=== PATIENT | female | born 1965 | race Caucasian/White ===

== ENCOUNTER 2022-08-20 15:46 | Inpatient (IN) | payer OTHER ==
[~2022-08-20] VITALS: Ht 154.9 cm; Wt 62.1 kg
[2022-08-20] MEDS ORDERED: FAMOTIDINE 20MG/2ML VIAL IV STA (16:23)
[2022-08-20] MEDS ORDERED: MORPHINE SULFATE 4 MG/ML CPJ (NOT FOR IM USE) IV STA (16:23)
[2022-08-20] MEDS ORDERED: ONDANSETRON HCL 4MG/2ML INJ IV STA (16:23)
[2022-08-20] MEDS ORDERED: SODIUM CHLORIDE 0.9% 1,000 ML IV ONE (16:30)
[2022-08-20 16:38] LABS: BASOPHILS % 0.4 % (0.0-2.0); HEMATOCRIT. 32.8 % (36.0-48.0); HEMOGLOBIN. 11.3 g/dL (12.0-16.0); LYMPHOCYTES % 18.3 % (20.0-50.0); MEAN CORPUSCULAR HEMOGLOBIN 30.7 pg (28.0-32.0); MEAN CORPUSCULAR VOLUME 89.2 fL (81.0-99.0); MEAN PLATELET VOLUME 8.3 fl (7.4-10.4); MONOCYTES % 5.2 % (2.0-8.0); NEUTROPHILS % 76.1 % (40.0-76.0); PLATELET 302 x1000/uL (130-400); RED BLOOD CELL COUNT 3.67 mill/uL (4.2-5.4)
[2022-08-20 16:43] LABS: CHLORIDE 100 mEq/L (98-107)
[2022-08-20 17:14] LABS: INR 1.1
[2022-08-20] MEDS ORDERED: METRONIDAZOLE 500 MG PREMIX 100 ML IV STA (18:45)
[2022-08-20] MEDS: LEVOFLOXACIN 750MG PREMIX 150 ML IV STA ×2 (20:08→21:30)
[2022-08-20] MEDS ORDERED: MORPHINE SULFATE 2 MG/ML CPJ (NOT FOR IM USE) IV PRN (22:00)
[2022-08-20] MEDS ORDERED: NALOXONE HCL 0.4MG/ML VIAL IV PRN (22:00)
[2022-08-20] MEDS: ONDANSETRON HCL 4MG/2ML INJ IV PRN (22:29)
[2022-08-21 02:31] VITALS: BP 152/98
[2022-08-21] MEDS: ONDANSETRON HCL 4MG/2ML INJ IV PRN (05:52)
[2022-08-21] MEDS ORDERED: DEXT 5%/0.2% NACL KCL 20MEQ/L 1,000 ML IV SCH (09:00)
[2022-08-21] MEDS ORDERED: DEXTROSE 50% WATER 50ML SYRINGE IV PRN (11:00)
[2022-08-21] MEDS: BLOOD SUGAR DIAGNOSTIC STRIP TEST SCH ×3 (12:34→20:39)
[2022-08-21] MEDS: INSULIN LISPRO 100 UNITS/ML SUBCUT SCH ×3 (12:52→21:02)
[2022-08-21] MEDS: METRONIDAZOLE 500 MG PREMIX 100 ML IV SCH ×2 (13:21→21:38)
[2022-08-21 16:00] VITALS: BP 148/86
[2022-08-21] MEDS ORDERED: METO-293 MT (18:55)
[2022-08-21] MEDS ORDERED: IBUP-2029 PO (18:55)
[2022-08-21] MEDS ORDERED: ATOR10TA69 MT (19:03)
[2022-08-21] MEDS ORDERED: AMLO10TA80 MT (19:03)
[2022-08-21] MEDS ORDERED: OMEP20CA14 MT (19:03)
[2022-08-21] MEDS ORDERED: CIPR500S4 PO (19:03)
[2022-08-21 20:00] VITALS: BP 141/77
[2022-08-21] MEDS: LEVOFLOXACIN 500MG PREMIX 100 ML IV SCH (20:33)
[2022-08-22] VITALS: BP 145/77
[2022-08-22 04:00] VITALS: BP 113/68
[2022-08-22] MEDS: METRONIDAZOLE 500 MG PREMIX 100 ML IV SCH ×3 (05:57→21:22)
[2022-08-22] MEDS: INSULIN LISPRO 100 UNITS/ML SUBCUT SCH ×4 (07:50→21:29)
[2022-08-22] MEDS: BLOOD SUGAR DIAGNOSTIC STRIP TEST SCH ×4 (07:53→21:31)
[2022-08-22 08:00] VITALS: BP 132/81
[2022-08-22 12:00] VITALS: BP 145/79
[2022-08-22 15:00] LABS: BASOPHILS % 0.6 % (0.0-2.0); EOSINOPHILS % 0.3 % (0.0-5.0); HEMATOCRIT. 33.3 % (36.0-48.0); HEMOGLOBIN. 11.4 g/dL (12.0-16.0); LYMPHOCYTES % 35.2 % (20.0-50.0); MEAN CORPUSCULAR HEMOGLOBIN 30.9 pg (28.0-32.0); MEAN CORPUSCULAR VOLUME 90.2 fL (81.0-99.0); MEAN PLATELET VOLUME 7.8 fl (7.4-10.4); MONOCYTES % 8.4 % (2.0-8.0); NEUTROPHILS % 55.5 % (40.0-76.0); PLATELET 266 x1000/uL (130-400); RED BLOOD CELL COUNT 3.69 mill/uL (4.2-5.4); RED CELL DISTRIBUTION WIDTH 12.7 % (11.6-14.6)
[2022-08-22 15:11] LABS: CHLORIDE 102 mEq/L (98-107)
[2022-08-22 16:00] VITALS: BP 135/75
[2022-08-22] MEDS: LEVOFLOXACIN 500MG PREMIX 100 ML IV SCH (19:34)
[2022-08-22 20:00] VITALS: BP 142/66
[2022-08-23] VITALS: BP 131/76
[2022-08-23 04:00] VITALS: BP 121/70
[2022-08-23] MEDS: METRONIDAZOLE 500 MG PREMIX 100 ML IV SCH ×2 (05:13→13:07)
[2022-08-23] MEDS: BLOOD SUGAR DIAGNOSTIC STRIP TEST SCH ×2 (07:24→12:59)
[2022-08-23] MEDS: INSULIN LISPRO 100 UNITS/ML SUBCUT SCH ×2 (07:24→13:13)
[2022-08-23 08:00] VITALS: BP 146/74
[2022-08-23 12:00] VITALS: BP 149/90
[2022-08-23] MEDS ORDERED: METR-167 MT (12:06)
[2022-08-23 15:47] VITALS: BP 149/90
[2022-08-23] MEDS ORDERED: LEVOFLOXACIN 500MG TABLET PO SCH (20:00)
[2022-08-23] MEDS ORDERED: METRONIDAZOLE 500MG TABLET PO SCH (22:00)
== END 2022-08-23 16:10 | disposition home or self-care (01) | DRG 244 ==
LOC: ER 15:46 → MICUSO 20:15 → EDBEDREQTM 20:20 → EDBEDREQ 20:20 → 6EST 08-21 01:58
PROVIDERS: ADMIT Internal Medicine; ATTEND Internal Medicine
DX: K57.32 Diverticulitis of large intestine without perforation or abscess without bleeding (principal); E11.65 Type 2 diabetes mellitus with hyperglycemia; E66.9 Obesity, unspecified; Z68.30 Body mass index [BMI] 30.0-30.9, adult; Z88.0 Allergy status to penicillin; Z68.25 Body mass index [BMI] 25.0-25.9, adult
CPT/HCPCS: 36415; 74176; 80048; 80053; 82962; 85025; 99285; J1815; J1956; J2270; J2405; J3490; J7030